=== PATIENT | female | born 2000 | race Caucasian/White ===

== ENCOUNTER → 2020-12-28 11:24 | Outpatient (BNVA) | payer OTHER, SELFPAY | PROVIDERS: PCP Nurse Practitioner Family; Visit Provider Obstetrics & Gynecology ==

== ENCOUNTER 2021-01-04 14:12 | Outpatient (REF) | payer OTHER, SELFPAY ==
[2021-01-05 06:17] LABS: CT PCR NOT DETECTED (Not Detect.); NG PCR NOT DETECTED (Not Detect.)
[2021-01-05 12:37] LABS: BV Int Neg Control Negative (Negative); BV Int Pos Control Positive (Positive)
== END 2021-01-04 14:13 | disposition home or self-care (01) ==
LOC: HO.LAB 14:12
PROVIDERS: PCP Nurse Practitioner Family; Visit Provider Obstetrics & Gynecology
DX: Z01.411 Encounter for gynecological examination (general) (routine) with abnormal findings (principal); R39.89 Other symptoms and signs involving the genitourinary system
CPT/HCPCS: 87480; 87491; 87510; 87591; 87660; 88142